=== PATIENT | male | born 1975 | race Caucasian/White ===

== ENCOUNTER 2022-06-16 19:56 | Inpatient (IN) | payer MEDICARE, OTHER ==
[~2022-06-16] VITALS: Ht 167.6 cm; Wt 66.7 kg
[2022-06-16 21:10] VITALS: BP 128/85
[2022-06-16] MEDS ORDERED: LEVO75TA7 PO (23:07)
[2022-06-16] MEDS ORDERED: OLAN5TAB3 PO (23:07)
[2022-06-16] MEDS ORDERED: QUET25TA PO (23:07)
[2022-06-16] MEDS ORDERED: CLON0.1T PO (23:07)
[2022-06-16] MEDS ORDERED: ACET325C7 PO (23:07)
[2022-06-16] MEDS ORDERED: CHLO473M3 PO (23:07)
[2022-06-16] MEDS ORDERED: AMOX-430 PO (23:07)
[2022-06-16] MEDS ORDERED: LORA-259 PO (23:07)
[2022-06-16] MEDS ORDERED: SENN-261 PO (23:07)
[2022-06-16] MEDS ORDERED: EPIN0.3A4 IM (23:07)
[2022-06-16] MEDS ORDERED: VITA200C22 PO (23:07)
[2022-06-16] MEDS ORDERED: ASCO500T10 PO (23:07)
[2022-06-16] MEDS ORDERED: DOCU100C36 PO (23:07)
[2022-06-16] MEDS ORDERED: QUET50TA PO (23:07)
[2022-06-16] MEDS ORDERED: CITA40TA22 PO (23:07)
[2022-06-16] MEDS ORDERED: GUAI-1133 PO (23:07)
[2022-06-16] MEDS ORDERED: TEMA15CA5 PO (23:07)
[2022-06-16] MEDS ORDERED: PENT400T17 PO (23:07)
[2022-06-16] MEDS ORDERED: OLAN10TA3 PO (23:07)
[2022-06-16] MEDS ORDERED: MUPI15CR TP (23:07)
[2022-06-16] MEDS ORDERED: MAG HYDROX/AL HYDROX/SIMETH 30 ML UDC PO PRN (23:30)
[2022-06-16] MEDS ORDERED: DOCUSATE SODIUM 100 MG CAPSULE PO PRN (23:30)
[2022-06-16] MEDS: ENOXAPARIN SODIUM 40 MG/0.4 ML DISP.SYRIN SQ SCH (23:30)
[2022-06-16] MEDS ORDERED: MAGNESIUM HYDROXIDE 30 ML UDC PO PRN (23:30)
[2022-06-16] MEDS ORDERED: IV NS 0.9% 1,000 ML IV PRN (23:30)
[2022-06-16] MEDS ORDERED: LORAZEPAM 1 MG TABLET PO PRN (23:30)
[2022-06-16] MEDS ORDERED: ONDANSETRON HCL/PF 4 MG/2 ML VIAL IVP PRN (23:30)
[2022-06-16] MEDS ORDERED: ACETAMINOPHEN 325 MG TABLET PO PRN (23:30)
[2022-06-16] MEDS ORDERED: ZOLPIDEM TARTRATE 5 MG TABLET PO PRN (23:30)
[2022-06-16] MEDS ORDERED: Z GUARD REMEDY 4 OZ OINT TP PRN (23:30)
[2022-06-17] VITALS: BP 158/90
--- NOTE | 2022-06-17 04:28 | NUR ---
DIRECT ADMIT NOTES Received report from Myra Gómez. Pt arrived via EMT transportation from [facility] @2109 accompanied be streets and buildings decorator and father, Luis. SALVADORx3, able to make needs known. ON NC 5LPM and tolerating well. IV access in LAC #22G and LFA #20G. IV is intact, patent, and flushing well. Safety precautions in place: bed in lowest, locked position, siderails upX2, and brakes on. Table and call light within reach. All needs met at this time.
[2022-06-17 04:57] VITALS: BP 127/82
[2022-06-17 06:18] LABS: BASOPHILS # (AUTO) 0.1 K/uL (0.0-0.2); BASOPHILS % (AUTO) 0.5 % (0.0-2.0); EOSINOPHILS % (AUTO) 0.2 % (0.0-6.0); HEMATOCRIT 35 % (39-51); HEMOGLOBIN 11.4 g/dL (13.5-17.5); LYMPHOCYTES # (AUTO) 1.5 K/uL (0.8-4.8); LYMPHOCYTES % (AUTO) 10.5 % (20.0-44.0); MEAN CORPUSCULAR HGB CONC 33 g/dl (31.0-36.0); MEAN CORPUSCULAR VOLUME 87 fL (80-96); MONOCYTES % (AUTO) 7.2 % (2.0-12.0); NEUTROPHILS # (AUTO) 11.6 K/uL (1.8-8.9); NEUTROPHILS % (AUTO) 81.6 % (43.0-81.0); PLATELET COUNT (AUTO) 215 K/uL (150-450); WHITE BLOOD COUNT (AUTO) 14.2 K/uL (4.3-11.0)
--- NOTE | 2022-06-17 07:06 | NUR ---
Rn Closing Notes Pt strolling through halls with mother. AOx3, able to make needs known. ON RA and tolerating well. IV access in LAC #22G and LFA #20G. IV is intact, patent, and flushing well. All orders carried out. All needs met. Pt kept clean and dry. Safety precautions in place: bed in lowest, locked position, siderails upX2, and brakes on. Table and call light within reach. Will endorse to oncoming shift for CHASTITY.
[2022-06-17 07:12] LABS: CALCIUM, SERUM 9.1 mg/dL (8.5-10.1); CREATININE 0.6 mg/dL (0.6-1.3); MAGNESIUM 2.1 mg/dL (1.8-2.4); PHOSPHORUS 2.2 mg/dL (2.5-4.9); POTASSIUM 3.6 mmol/L (3.5-5.1)
--- NOTE | 2022-06-17 07:30 | NUR ---
ms rn received on bed, awake,oriented x3, not in any form of distress, respirations even and unlabored,no sob noted ,on room air, saturating 98%,denies pain at this time, noted to have chin wound w/ dressing dry and intact, will monitor patient.
[2022-06-17 08:00] LABS: T4 (THYROXINE) 7.6 ug/dL (4.7-13.3); THYROID STIMULATING HORMONE 5.657 uIU/mL (0.358-3.74)
[2022-06-17 08:11] VITALS: BP 99/65
[2022-06-17] MEDS: IPRATROPIUM NEB FS 0.5 MG/2.5 ML AMPUL.NEB NEB SCH ×4 (08:45→20:23)
[2022-06-17] MEDS: ALBUTEROL FS 2.5 MG/3 ML VIAL.NEB NEB SCH ×4 (08:45→20:23)
[2022-06-17] MEDS: CHLORHEXIDINE GLUCONATE 15 ML UDC MM SCH ×2 (08:45→21:33)
[2022-06-17] MEDS: QUETIAPINE FUMARATE 25 MG TABLET PO SCH ×3 (08:46→21:21)
[2022-06-17] MEDS: ASCORBIC ACID 500 MG TABLET PO SCH ×2 (08:46→17:08)
[2022-06-17] MEDS: OLANZAPINE 5 MG TABLET PO SCH (08:46)
[2022-06-17] MEDS: CITALOPRAM HYDROBROMIDE 20 MG TABLET PO SCH (08:46)
[2022-06-17] MEDS: CEFEPIME 2 GM in IV D5W 100 ML IV SCH ×3 (08:49→21:20)
[2022-06-17] MEDS: PENTOXIFYLLINE 400 MG TABLET.SA PO SCH ×3 (08:50→17:10)
[2022-06-17] MEDS: LEVOTHYROXINE SODIUM 75 MCG TABLET PO SCH (08:50)
[2022-06-17] MEDS: ENOXAPARIN SODIUM 40 MG/0.4 ML DISP.SYRIN SQ SCH (08:54)
--- NOTE | 2022-06-17 08:54 | NUR ---
WOUND CARE CONSULT: PT PRESENTS WITH JAW WOUNDS WITH EXPOSED BONE, PRESENT ON ADMISSION. PT'S MOTHER DOING WOUND CARE. DISCUSSED SKIN PROTECTION AND WOUND CARE WITH NURSING STAFF AND MOTHER AT BEDSIDE. DR FALK CALLED FOR SURGICAL CONSULT. IN AGREEMENT WITH PLAN OF CARE. PT IS AMBULATORY.
[2022-06-17] MEDS: MUPIROCIN 2% CREAM 15 GM TUBE TP SCH ×2 (08:55→17:08)
[2022-06-17] MEDS: MUPIROCIN OINT 2% 22 GM TUBE TP SCH ×2 (09:00→21:34)
[2022-06-17] MEDS ORDERED: VANCOMYCIN 1.5 GM in IV D5W 500ml IV ONE (09:00)
[2022-06-17] MEDS ORDERED: PANTOPRAZOLE 40 MG VIAL IV SCH (09:00)
[2022-06-17 09:26] LABS: BILIRUBIN,URINE NEGATIVE (NEGATIVE); COLOR,URINE YELLOW (YELLOW); LEUKOCYTE ESTERASE ,URINE NEGATIVE (NEGATIVE); NITRITE, URINE NEGATIVE (NEGATIVE); PROTEIN,URINE 1+ mg/dl (NEGATIVE); UGLUCOSE NEGATIVE (NEGATIVE); UROBILINOGEN,URINE 0.2 EU/dL (0.2)
--- NOTE | 2022-06-17 10:00 | NUR ---
ms rn breakfast served, due meds given,tolerated well. was seen by speech therapist w/ pureed food recommendation.
[2022-06-17 10:15] LABS: BACTERIA,URINE None seen /HPF (None Seen); SQUAMOUS EPITHELIAL CELL,UR Rare /HPF (None Seen); WBC,URINE NONE SEEN /HPF (0-3)
[2022-06-17 10:16] LABS: MUCUS,URINE Few /LPF (None Seen)
--- NOTE | 2022-06-17 11:00 | NUR ---
ms rn started on iv vanco, no reaction noted.
--- NOTE | 2022-06-17 15:18 | NUR ---
PATIENT FOUND W/O 02 ON. PATIENT IS STABLE, AWAKE, AND NO SOB NOTED. Addendum: 06/17/22 at 1519 by NATASHA CROOKS RT Amended: Links added.
[2022-06-17] MEDS ORDERED: NEUTRA PHOS 1 POWD.PACKET PO ONE (16:00)
[2022-06-17 16:41] VITALS: BP 119/78
[2022-06-17] MEDS: OLANZAPINE 10 MG TABLET PO SCH (17:08)
[2022-06-17] MEDS: VANCOMYCIN 1.25 GM in IV D5W 250 ML IV SCH (17:11)
--- NOTE | 2022-06-17 17:52 | NUR ---
ms rn still finishing antibiotics, cannot finish,patient is repeatedly going to the bathroom, no distress noted, meds given all needs attended.
--- NOTE | 2022-06-17 19:40 | NUR ---
DIESEL TRUCK DRIVER OPENING NOTES RECEIVED PT IN BED AWAKE AND ALERT FOR CONTINUITY OF CARE. A/O X 3, DELAYED. PT IS ABLE TO MAKE NEEDS KNOWN. NO S/S OF PAIN AT THIS TIME. ON ROOM AIR, BREATHING EVEN AND UNLABORED, NO DISTRESS OR SOB NOTED. IV ACCESS ON RAC #22G, CURRENTLY ON VANCO WITH NS @ 75ML/HR. PATIENT WITH EXTERNAL GRINDER SETUP OPERATOR WITH CURRENT READING OF ST 106, NO CARDIAC DISTRESS NOTED. SAFETY PRECAUTIONS IN PLACE WITH BED IN LOWEST LOCKED POSITION. BED ALARM ON. SIDE RIALS UP X 2. CALL LIGHT WITHIN EASY REACH. WILL CONTINUE THE PLAN OF CARE AND CARRY OUT ACTIVE MD ORDERS.
[2022-06-17 20:00] VITALS: BP 131/80
[2022-06-17] MEDS: TEMAZEPAM 15 MG CAPSULE PO SCH (21:20)
[2022-06-18] VITALS: BP 129/76
[2022-06-18] MEDS: VANCOMYCIN 1.25 GM in IV D5W 250 ML IV SCH ×3 (00:08→16:50)
[2022-06-18] MEDS: CEFEPIME 2 GM in IV D5W 100 ML IV SCH ×3 (04:04→21:24)
--- NOTE | 2022-06-18 07:40 | NUR ---
RASCHEL KNITTING MACHINE OPERATOR OPENING NOTES RECEIVED PT IN BED AWAKE AND ALERT. A/O X 3, DELAYED. PT IS ABLE TO MAKE NEEDS KNOWN. NO S/S OF PAIN AT THIS TIME. ON ROOM AIR, BREATHING EVEN AND UNLABORED, NO DISTRESS OR SOB NOTED. IV ACCESS ON RAC #22G, CURRENTLY ON VANCO WITH NS @ 75ML/HR. PATIENT WITH EXTERNAL COLLECTIONS AND ARCHIVES DIRECTOR , NO CARDIAC DISTRESS NOTED. SAFETY PRECAUTIONS IN PLACE WITH BED IN LOWEST LOCKED POSITION. BED ALARM ON. SIDE RIALS UP X 2. CALL LIGHT WITHIN EASY REACH. FATHER AT BEDSIDE. WILL CONTINUE TO MONITOR.
[2022-06-18] MEDS: IPRATROPIUM NEB FS 0.5 MG/2.5 ML AMPUL.NEB NEB SCH ×4 (07:42→20:03)
[2022-06-18] MEDS: ALBUTEROL FS 2.5 MG/3 ML VIAL.NEB NEB SCH ×4 (07:42→20:03)
--- NOTE | 2022-06-18 07:47 | NUR ---
COUTIERIER CLOSING NOTES PT IN BED AWAKE AND ALERT FOR CONTINUITY OF CARE. A/O X 3, DELAYED. PT IS ABLE TO MAKE NEEDS KNOWN. NO S/S OF PAIN AT THIS TIME. ON ROOM AIR, BREATHING EVEN AND UNLABORED, NO DISTRESS OR SOB NOTED. IV ACCESS ON RAC #22G, SL. PATIENT WITH EXTERNAL GEOPHYSICAL LABORATORY SUPERVISOR WITH CURRENT READING OF SR 80, NO CARDIAC DISTRESS NOTED. WOUND CARE DONE. ALL NEEDS ATTENDED. SAFETY PRECAUTIONS MAINTAINED WITH BED IN LOWEST LOCKED POSITION. BED ALARM ON. SIDE RIALS UP X 2. CALL LIGHT WITHIN EASY REACH. WILL ENDORSE TO THE NEXT SHIFT.
[2022-06-18 08:06] LABS: BASOPHILS # (AUTO) 0.1 K/uL (0.0-0.2); BASOPHILS % (AUTO) 0.6 % (0.0-2.0); EOSINOPHILS % (AUTO) 2.7 % (0.0-6.0); HEMATOCRIT 36 % (39-51); HEMOGLOBIN 11.8 g/dL (13.5-17.5); LYMPHOCYTES # (AUTO) 1.1 K/uL (0.8-4.8); LYMPHOCYTES % (AUTO) 13.3 % (20.0-44.0); MEAN CORPUSCULAR HGB CONC 33 g/dl (31.0-36.0); MEAN CORPUSCULAR VOLUME 87 fL (80-96); MONOCYTES # (AUTO) 0.7 K/uL (0.1-1.30); MONOCYTES % (AUTO) 8.3 % (2.0-12.0); NEUTROPHILS # (AUTO) 6.4 K/uL (1.8-8.9); NEUTROPHILS % (AUTO) 75.1 % (43.0-81.0); PLATELET COUNT (AUTO) 240 K/uL (150-450); RED BLOOD CELL COUNT(AUTO) 4.13 MIL/uL (4.5-6.0); WHITE BLOOD COUNT (AUTO) 8.5 K/uL (4.3-11.0)
[2022-06-18 08:15] VITALS: BP 112/60
[2022-06-18] MEDS: ASCORBIC ACID 500 MG TABLET PO SCH ×2 (08:22→16:52)
[2022-06-18] MEDS: CHLORHEXIDINE GLUCONATE 15 ML UDC MM SCH ×2 (08:22→21:24)
[2022-06-18] MEDS: LEVOTHYROXINE SODIUM 75 MCG TABLET PO SCH (08:22)
[2022-06-18] MEDS: QUETIAPINE FUMARATE 25 MG TABLET PO SCH ×3 (08:23→21:24)
[2022-06-18] MEDS: OLANZAPINE 5 MG TABLET PO SCH (08:23)
[2022-06-18] MEDS: CITALOPRAM HYDROBROMIDE 20 MG TABLET PO SCH (08:23)
[2022-06-18 08:25] LABS: CALCIUM, SERUM 9.1 mg/dL (8.5-10.1); CREATININE 0.7 mg/dL (0.6-1.3); MAGNESIUM 2.4 mg/dL (1.8-2.4); POTASSIUM 3.5 mmol/L (3.5-5.1)
[2022-06-18] MEDS: MUPIROCIN 2% CREAM 15 GM TUBE TP SCH ×2 (08:29→16:50)
[2022-06-18] MEDS: PENTOXIFYLLINE 400 MG TABLET.SA PO SCH ×3 (08:29→17:02)
[2022-06-18] MEDS: PANTOPRAZOLE 40 MG TABLET.DR PO SCH (08:30)
[2022-06-18] MEDS: MUPIROCIN OINT 2% 22 GM TUBE TP SCH ×2 (08:43→21:51)
[2022-06-18] MEDS: ENOXAPARIN SODIUM 40 MG/0.4 ML DISP.SYRIN SQ SCH (08:44)
--- NOTE | 2022-06-18 10:00 | NUR ---
ms perez faxed request of blood culture result to [facility], emailed to their records department ,per their protocol.
--- NOTE | 2022-06-18 14:00 | NUR ---
ms rn records received but no blood culture result,dr. graff made aware, perhaps result not yet available per md.
[2022-06-18 16:00] VITALS: BP 103/70
[2022-06-18] MEDS: OLANZAPINE 10 MG TABLET PO SCH (17:01)
--- NOTE | 2022-06-18 17:51 | NUR ---
ms rn pharmacy called, blas level - 29- blas stopped, only half of 250 cc give, all needs attended.
--- NOTE | 2022-06-18 18:30 | NUR ---
ms rn on bed, mom at bedside,all needs attended, no distress noted.
--- NOTE | 2022-06-18 18:38 | NUR ---
FRAME FIXER CLOSING NOTES PT IN BED AWAKE AND ALERT FOR CONTINUITY OF CARE. A/O X 3, DELAYED. PT IS ABLE TO MAKE NEEDS KNOWN. NO S/S OF PAIN AT THIS TIME. ON ROOM AIR, BREATHING EVEN AND UNLABORED, NO DISTRESS OR SOB NOTED. IV ACCESS ON RAC #22G, SL. PATIENT WITH EXTERNAL CODING VALIDATOR WITH CURRENT READING OF SR 80, NO CARDIAC DISTRESS NOTED. WOUND CARE DONE. ALL NEEDS ATTENDED. SAFETY PRECAUTIONS MAINTAINED WITH BED IN LOWEST LOCKED POSITION. BED ALARM ON. SIDE RIALS UP X 2. CALL LIGHT WITHIN EASY REACH. WILL ENDORSE TO THE NEXT SHIFT.
--- NOTE | 2022-06-18 19:30 | NUR ---
TELERN FULLY AWAKE MOTHER OF PATIENT AT BEDSIDE. WILL STAY OVERNIGHT. PATIENT ON RA SATURATING 98%. MOTHER ASSISTING PATIENT NEEDS PLAN OF CARE AND MEDICATION REGIMEN DISCUSSED WITH MOTHER WELL UNDERSTOOD. NO NEEDS FOR NOW. SR ON THE MONITOR.
[2022-06-18 20:00] VITALS: BP 101/57
--- NOTE | 2022-06-18 20:00 | NUR ---
TELERN RT AT BEDSIDE. HHN TREATMENT ON PROGRESS.
[2022-06-18] MEDS: TEMAZEPAM 15 MG CAPSULE PO SCH (21:25)
--- NOTE | 2022-06-18 22:00 | NUR ---
TELERN DUE MEDS ADMINISTERED. ABLE TO SWALLOW MEDS, ABLE TO FOLLOW INSTRUCTIONS, MOTHER ASSISTING. BRP VOIDED FREELY. PAINFREE. REMAINS SR ON THE MONITOR . CHIN WOUND DRESSING CHANGED BY MOTHER.
[2022-06-19] VITALS: BP 100/69
--- NOTE | 2022-06-19 01:06 | NUR ---
TELERN REPORT GIVEN TO RN FOR CONTINUITY OF CARE. REMAINS SR ON THE MONITOR,
[2022-06-19] MEDS: VANCOMYCIN HCL 0.75 GM in IV D5W 250 ML IV SCH ×3 (01:07→18:09)
--- NOTE | 2022-06-19 01:10 | NUR ---
RN NOTE TRANSFER OF CARE FROM [address]. PATIENT IN BED; ASLEEP. EASILY AROUSABLE BY TOUCH. ON ROOM AIR; TOLERATING WELL. IN NO ACUTE DISTRESS. SAFETY MEASURES IMPLEMENTED: CALL LIGHT AND TABLE WITHIN REACH, SIDE RAILS UP X 2, BED IN LOWEST LOCKED POSITION. WILL CONTINUE TO MONITOR THROUGHOUT SHIFT.
[2022-06-19] MEDS: CEFEPIME 2 GM in IV D5W 100 ML IV SCH ×3 (04:32→21:11)
[2022-06-19 04:41] VITALS: BP 102/71
[2022-06-19 06:41] LABS: BASOPHILS # (AUTO) 0.1 K/uL (0.0-0.2); BASOPHILS % (AUTO) 0.9 % (0.0-2.0); HEMATOCRIT 35 % (39-51); HEMOGLOBIN 11.7 g/dL (13.5-17.5); LYMPHOCYTES % (AUTO) 11.9 % (20.0-44.0); MEAN CORPUSCULAR HGB CONC 34 g/dl (31.0-36.0); MEAN CORPUSCULAR VOLUME 86 fL (80-96); MONOCYTES # (AUTO) 0.6 K/uL (0.1-1.30); MONOCYTES % (AUTO) 7.4 % (2.0-12.0); NEUTROPHILS # (AUTO) 6.2 K/uL (1.8-8.9); NEUTROPHILS % (AUTO) 75.8 % (43.0-81.0); PLATELET COUNT (AUTO) 270 K/uL (150-450); RED BLOOD CELL COUNT(AUTO) 4.04 MIL/uL (4.5-6.0); WHITE BLOOD COUNT (AUTO) 8.2 K/uL (4.3-11.0)
--- NOTE | 2022-06-19 06:58 | NUR ---
RN CLOSING NOTE PT IN BED; AWAKE, A/O X 3, DEVELOPMENTALLY DELAYED. STABLE ON ROOM AIR. IN NO ACUTE DISTRESS. ABLE TO MAKE NEEDS KNOWN. NO S/S OF PAIN AT THIS TIME. WITH IV ACCESS ON GARRET 22g; PATENT, INTACT AND SL. WITH EXTERNAL BRIDGE WELDER WITH CURRENT READING OF SR 80. ALL NEEDS ATTENDED. SAFETY PRECAUTIONS MAINTAINED WITH BED IN LOWEST LOCKED POSITION. BED ALARM ON. SIDE RIALS UP X 2. CALL LIGHT WITHIN EASY REACH. ENDORSED TO NEXT SHIFT FOR CHASTITY.
--- NOTE | 2022-06-19 07:10 | NUR ---
ms rn received on bed, awake,mom at bedside, not in any form of distress, patient is mentally delayed, came in w/ sepsis,denies pain at this time, safety precaution maintained,will monitor patient.
[2022-06-19] MEDS: ALBUTEROL FS 2.5 MG/3 ML VIAL.NEB NEB SCH ×4 (07:40→19:40)
[2022-06-19] MEDS: IPRATROPIUM NEB FS 0.5 MG/2.5 ML AMPUL.NEB NEB SCH ×4 (07:40→19:40)
[2022-06-19] MEDS: LEVOTHYROXINE SODIUM 75 MCG TABLET PO SCH (07:41)
[2022-06-19 08:00] VITALS: BP 131/87
[2022-06-19 08:31] LABS: CALCIUM, SERUM 9.2 mg/dL (8.5-10.1); CREATININE 0.9 mg/dL (0.6-1.3); MAGNESIUM 2.4 mg/dL (1.8-2.4); POTASSIUM 3.4 mmol/L (3.5-5.1)
[2022-06-19] MEDS: MUPIROCIN 2% CREAM 15 GM TUBE TP SCH ×2 (09:00→17:42)
[2022-06-19] MEDS: OLANZAPINE 5 MG TABLET PO SCH (09:42)
[2022-06-19] MEDS: QUETIAPINE FUMARATE 25 MG TABLET PO SCH ×3 (09:42→21:46)
[2022-06-19] MEDS: ASCORBIC ACID 500 MG TABLET PO SCH ×2 (09:42→17:42)
[2022-06-19] MEDS: CITALOPRAM HYDROBROMIDE 20 MG TABLET PO SCH (09:42)
[2022-06-19] MEDS: ENOXAPARIN SODIUM 40 MG/0.4 ML DISP.SYRIN SQ SCH (09:43)
[2022-06-19] MEDS: CHLORHEXIDINE GLUCONATE 15 ML UDC MM SCH ×2 (09:43→21:11)
[2022-06-19] MEDS: MUPIROCIN OINT 2% 22 GM TUBE TP SCH ×2 (09:47→21:12)
[2022-06-19] MEDS: PENTOXIFYLLINE 400 MG TABLET.SA PO SCH ×3 (09:47→18:10)
[2022-06-19] MEDS: PANTOPRAZOLE 40 MG TABLET.DR PO SCH (09:50)
--- NOTE | 2022-06-19 09:50 | NUR ---
ms rn breakfast served,due meds given,tolerated well. all needs attended.
[2022-06-19] MEDS ORDERED: POTASSIUM CHLORIDE 20 MEQ POWDER PACKET PO ONE (11:30)
--- NOTE | 2022-06-19 12:00 | NUR ---
ms rn was seen by dr. martini, still waiting for blood culture, result,all needs attended.
[2022-06-19 12:09] VITALS: BP 150/94
[2022-06-19 16:01] VITALS: BP 139/98
[2022-06-19] MEDS ORDERED: POTASSIUM CHLORIDE 20 MEQ POWDER PACKET GT ONE (17:00)
[2022-06-19] MEDS: OLANZAPINE 10 MG TABLET PO SCH (17:41)
--- NOTE | 2022-06-19 17:51 | NUR ---
ms rn on bed,no distress noted,all needs attended, sister at bedside.
--- NOTE | 2022-06-19 17:54 | NUR ---
ms rn cannot finish iv atb, patient repeatedly goes to the bathroom,all needs attended.
[2022-06-19] MEDS ORDERED: DORZ10DR EACHEYE (19:04)
[2022-06-19] MEDS ORDERED: CETI-90 PO ×2 (19:04)
[2022-06-19] MEDS ORDERED: ASCO500T21 PO (19:04)
[2022-06-19] MEDS ORDERED: ROSU5TAB PO ×2 (19:04)
[2022-06-19] MEDS ORDERED: ASCO500T10 PO (19:04)
[2022-06-19] MEDS ORDERED: PREG200C PO (19:04)
[2022-06-19] MEDS ORDERED: LINA72CA PO (19:05)
--- NOTE | 2022-06-19 19:42 | NUR ---
RT Pt recvd awake on room air with family memeber at bedside. No SOB or respiratory distress noted at this time. neb tx given and july well with no adverse reaction noted. Diminished BS. Spo2 >92%
[2022-06-19 20:00] VITALS: BP 118/84
--- NOTE | 2022-06-19 20:06 | NUR ---
LAB SUPPORT TECH NOTES RECEIVED SITTING ON EDGE OF BED,A/O X3,DEVELOPMENT DELAYED,ABLE TO ANSWER SIMPLE QUESTION.FAMILY MEMBER AT BEDSIDE.SALINE LOCK LEFT UPPER ARM INTACT AND PATENT.AMBULATE WITH STEADY GAIT,S/P RESECTION OF CHIN,DRESSING INTACT AND DRY,WILL CONTINUE TO MONITOR STATUS.CALL LIGHT IN REACH,NEEDS ANTICIPATED.
[2022-06-19] MEDS: TEMAZEPAM 15 MG CAPSULE PO SCH (21:45)
[2022-06-20] VITALS: BP 122/85
[2022-06-20] MEDS: VANCOMYCIN HCL 0.75 GM in IV D5W 250 ML IV SCH ×3 (01:32→16:28)
--- NOTE | 2022-06-20 01:42 | NUR ---
MASTER CONTROL TECHNICIAN NOTES VANCO TROUGH 19,DOSE HUNG THIS TIME.
[2022-06-20] MEDS: CEFEPIME 2 GM in IV D5W 100 ML IV SCH ×3 (05:15→20:21)
--- NOTE | 2022-06-20 06:10 | NUR ---
CAN BANDER OPERATOR NOTES AWAKE,A/O X3,VERBALIZED NEEDS,VERY THANKFUL OF THE SERVICE AND CARE,HE LIKES THE HOSPITAL.MED COMPLIANT.AMBULATE WITH STEADY GAIT,SISTER AT BEDSIDE.FOR DISCHARGE PLANNING AWAITING BLOOD CULTURES RESULT FOR JONES.
[2022-06-20 06:20] LABS: BASOPHILS # (AUTO) 0.1 K/uL (0.0-0.2); BASOPHILS % (AUTO) 1.2 % (0.0-2.0); EOSINOPHILS % (AUTO) 4.6 % (0.0-6.0); HEMATOCRIT 36 % (39-51); HEMOGLOBIN 11.8 g/dL (13.5-17.5); LYMPHOCYTES # (AUTO) 1.1 K/uL (0.8-4.8); LYMPHOCYTES % (AUTO) 15.9 % (20.0-44.0); MEAN CORPUSCULAR HGB CONC 33 g/dl (31.0-36.0); MEAN CORPUSCULAR VOLUME 87 fL (80-96); MONOCYTES # (AUTO) 0.7 K/uL (0.1-1.30); MONOCYTES % (AUTO) 10.2 % (2.0-12.0); NEUTROPHILS # (AUTO) 4.9 K/uL (1.8-8.9); NEUTROPHILS % (AUTO) 68.1 % (43.0-81.0); PLATELET COUNT (AUTO) 278 K/uL (150-450); RED BLOOD CELL COUNT(AUTO) 4.14 MIL/uL (4.5-6.0); WHITE BLOOD COUNT (AUTO) 7.2 K/uL (4.3-11.0)
[2022-06-20 06:41] LABS: CALCIUM, SERUM 9.1 mg/dL (8.5-10.1); CREATININE 0.7 mg/dL (0.6-1.3); MAGNESIUM 2.5 mg/dL (1.8-2.4); PHOSPHORUS 4.2 mg/dL (2.5-4.9); POTASSIUM 3.5 mmol/L (3.5-5.1)
[2022-06-20 07:00] VITALS: BP 127/75
--- NOTE | 2022-06-20 07:30 | NUR ---
PT RECEIVED RESTING COMFORTABLY IN BED. NO S/S OR C/O PAIN OR DISTRESS NOTED. SIDE RAILS UP X2, CALL LIGHT LEFT WITHIN REACH. WILL CONTINUE PLAN OF CARE.
[2022-06-20] MEDS: ALBUTEROL FS 2.5 MG/3 ML VIAL.NEB NEB SCH ×4 (07:50→19:50)
[2022-06-20] MEDS: IPRATROPIUM NEB FS 0.5 MG/2.5 ML AMPUL.NEB NEB SCH ×4 (07:50→19:50)
[2022-06-20] MEDS: PENTOXIFYLLINE 400 MG TABLET.SA PO SCH ×3 (08:14→16:28)
[2022-06-20] MEDS: LEVOTHYROXINE SODIUM 75 MCG TABLET PO SCH (08:14)
[2022-06-20] MEDS: CITALOPRAM HYDROBROMIDE 20 MG TABLET PO SCH (08:14)
[2022-06-20] MEDS: PANTOPRAZOLE 40 MG TABLET.DR PO SCH (08:14)
[2022-06-20] MEDS: CHLORHEXIDINE GLUCONATE 15 ML UDC MM SCH ×2 (08:14→20:21)
[2022-06-20] MEDS: ASCORBIC ACID 500 MG TABLET PO SCH ×2 (08:14→16:28)
[2022-06-20] MEDS: QUETIAPINE FUMARATE 25 MG TABLET PO SCH ×3 (08:14→21:06)
[2022-06-20] MEDS: OLANZAPINE 5 MG TABLET PO SCH (08:16)
[2022-06-20] MEDS: ENOXAPARIN SODIUM 40 MG/0.4 ML DISP.SYRIN SQ SCH (08:26)
[2022-06-20] MEDS: MUPIROCIN 2% CREAM 15 GM TUBE TP SCH ×2 (08:31→16:29)
[2022-06-20] MEDS: MUPIROCIN OINT 2% 22 GM TUBE TP SCH ×2 (08:32→20:22)
[2022-06-20 12:00] VITALS: BP 126/90
[2022-06-20 16:00] VITALS: BP 136/91
[2022-06-20] MEDS: OLANZAPINE 10 MG TABLET PO SCH (17:34)
--- NOTE | 2022-06-20 18:23 | NUR ---
CHANGE OF SHIFT REPORT PT RESTING COMFORTABLY IN BED. NO S/S OR C/O PAIN OR DISTRESS NOTED. SIDE RAILS UP X2, CALL LIGHT LEFT WITHIN REACH. PT KEPT CLEAN, DRY, AND COMFORTABLE. WILL GIVE REPORT TO SNEHAL ALDRICH.
--- NOTE | 2022-06-20 19:30 | NUR ---
MS RN OPENING NOTE RECEIVED PATIENT IN BED, AWAKE, ALERT AND ORIENTED X 3, WITH FATHER AT BEDSIDE. ABLE TO MAKE NEEDS KNOWN. AFEBRILE AND NOT IN ANY FORM OF ACUTE DISTRESS. BREATHING EVEN AND NON LABORED. WITH IV ACCESS ON L AC 22G-SL. SAFETY MEASURES IN PLACE. KEPT BED IN LOCKED AND IN LOW POSITION. SIDE RAILS UP X2. ADVISED TO USE THE CALL LIGHT WHEN IN NEED OF ASSISTANCE.
[2022-06-20] MEDS ORDERED: IV D5/0.45 NACL 1,000 ML IV ONE (20:00)
[2022-06-20] MEDS: IV NS 0.9% 1,000 ML IV SCH (20:06)
[2022-06-20 20:48] VITALS: BP 136/89
[2022-06-20] MEDS: TEMAZEPAM 15 MG CAPSULE PO SCH (21:07)
[2022-06-21] MEDS: VANCOMYCIN HCL 0.75 GM in IV D5W 250 ML IV SCH ×2 (00:17→09:09)
[2022-06-21] MEDS: CEFEPIME 2 GM in IV D5W 100 ML IV SCH ×2 (04:20→13:01)
--- NOTE | 2022-06-21 06:24 | NUR ---
MS RN CLOSING NOTE PATIENT IN BED, ASLEEP BUT EASY TO AROUSE AND RESPONSIVE, WITH FATHER AT BEDSIDE. ABLE TO MAKE NEEDS KNOWN. AFEBRILE AND NOT IN ANY FORM OF ACUTE DISTRESS. BREATHING EVEN AND NON LABORED. WITH IV ACCESS ON L AC 22G RUNNING WITH NS AT 75ML/HR. MEDICATED ORDERED. CONTINUOUS ON IV ATB, MONITORED FOR ANY ADVERSE REACTION. WOUND CARE DONE DURING THE SHIFT. SAFETY MEASURES IN PLACE. KEPT BED IN LOCKED AND IN LOW POSITION. SIDE RAILS UP X2. ADVISED TO USE THE CALL LIGHT WHEN IN NEED OF ASSISTANCE. ALL NURSING NEEDS ATTENDED. ENDORSED TO INCOMING SHIFT FOR CONTINUITY OF CARE.
[2022-06-21 07:02] LABS: CALCIUM, SERUM 8.9 mg/dL (8.5-10.1); CREATININE 0.7 mg/dL (0.6-1.3); POTASSIUM 3.4 mmol/L (3.5-5.1)
--- NOTE | 2022-06-21 07:25 | NUR ---
MS RN OPENING NOTES: RECEIVED PATIENT SITTING IN BED, WITH FATHER AT BEDSIDE. NO SIGNS OF DISTRESS, NO COMPLAIN OF PAIN AND DISCOMFORT AT THIS TIME. PATIENT IS A/O X3. ON ROOM AIR SATURATING WELL; NO SOB NOTED, BREATHING EVEN AND UNLABORED. WITH IV ACCESS ON LEFT AC 22G RUNNING WITH NS @ 75ML/HR, INFUSING WELL. SAFETY MEASURE IN PLACE. BED IN LOW AND LOCKED POSITION, SIDE RAILS UP X2; CALL LIGHT WITHIN EASY REACH. WILL CONTINUE TO MONITOR PATIENT.
[2022-06-21] MEDS: IPRATROPIUM NEB FS 0.5 MG/2.5 ML AMPUL.NEB NEB SCH ×2 (07:41→12:00)
[2022-06-21] MEDS: ALBUTEROL FS 2.5 MG/3 ML VIAL.NEB NEB SCH ×2 (07:41→12:00)
[2022-06-21 08:18] VITALS: BP 149/94
[2022-06-21] MEDS: MUPIROCIN 2% CREAM 15 GM TUBE TP SCH (09:00)
[2022-06-21] MEDS: PENTOXIFYLLINE 400 MG TABLET.SA PO SCH ×3 (09:00→16:27)
[2022-06-21] MEDS: OLANZAPINE 5 MG TABLET PO SCH (09:04)
[2022-06-21] MEDS: CHLORHEXIDINE GLUCONATE 15 ML UDC MM SCH (09:04)
[2022-06-21] MEDS: LEVOTHYROXINE SODIUM 75 MCG TABLET PO SCH (09:04)
[2022-06-21] MEDS: ASCORBIC ACID 500 MG TABLET PO SCH ×2 (09:05→16:27)
[2022-06-21] MEDS: QUETIAPINE FUMARATE 25 MG TABLET PO SCH ×2 (09:05→16:26)
[2022-06-21] MEDS: PANTOPRAZOLE 40 MG TABLET.DR PO SCH (09:05)
[2022-06-21] MEDS: CITALOPRAM HYDROBROMIDE 20 MG TABLET PO SCH (09:13)
--- NOTE | 2022-06-21 09:15 | NUR ---
MS RN MS RN MISTAKENLY PULLED OUT 1 TABLET INSTEAD OF 2 OF CITALOPRAM TAB. WENT TO [facility] GET ANOTHER 1 TO COMPLETE THE DOSE.
[2022-06-21] MEDS: IV NS 0.9% 1,000 ML IV SCH (09:20)
--- NOTE | 2022-06-21 09:20 | NUR ---
MS RN PATIENT STILL HAS RUNNING IV FLUID AT 700ML.
[2022-06-21] MEDS: MUPIROCIN OINT 2% 22 GM TUBE TP SCH (09:43)
[2022-06-21] MEDS: ENOXAPARIN SODIUM 40 MG/0.4 ML DISP.SYRIN SQ SCH (09:44)
[2022-06-21] MEDS ORDERED: POTASSIUM CHLORIDE 20 MEQ TAB.PRT.SR PO ONE (10:00)
[2022-06-21] MEDS ORDERED: ALBU8.5H8 INH (14:16)
[2022-06-21] MEDS ORDERED: AMOX-430 PO (14:16)
--- NOTE | 2022-06-21 16:35 | NUR ---
MS DISCHARGE NOTES: DISCHARGED PATIENT TO [facility] IN STABLE CONDITION. A/O X3. ON ROOM AIR, TOLERATING WELL. NO S/SX OF DISTRESS, BREATHING WITHOUT DIFFICULTY. DENIES PAIN AND DISCOMFORT AT THIS TIME. ALL BELONGINGS ACCOUNTED TO PATIENT. CARE INSTRUCTION RENDERED TO PATIENTS CAREGIVER/MOTHER (CONSERVATOR). DUE MEDS GIVEN. IV ACCESS REMOVED, NO REDNESS OR BLEEDING NOTED. WOUND DRESSING CHANGED PRIOR TO DISCHARGE. DISCHARGED INSTRUCTION RELAYED TO PATIENTS CAREGIVER/MOTHER (CONSERVATOR) WELL TO [facility]AC[facility] NURSE. PATIENT LEFT THE UNIT VIA WHEELCHAIR. ENDORSED TO [facility] COORDINATOR/NURSE AVINA. ENDORSED ACCORDINGLY.
== END 2022-06-21 16:39 | DRG 871 ==
LOC: TELE 21:03 → MED 06-20 15:31
PROVIDERS: ADMIT Nurse Practitioner Acute Care; ATTEND Student in an Organized Health Care Education/Training Program
DX: A41.9 Sepsis, unspecified organism (principal); G92.8 Other toxic encephalopathy; J69.0 Pneumonitis due to inhalation of food and vomit; J96.01 Acute respiratory failure with hypoxia; R65.20 Severe sepsis without septic shock; E03.9 Hypothyroidism, unspecified; R62.50 Unspecified lack of expected normal physiological development in childhood; R13.10 Dysphagia, unspecified; Z87.39 Personal history of other diseases of the musculoskeletal system and connective tissue; Z85.819 Personal history of malignant neoplasm of unspecified site of lip, oral cavity, and pharynx; Z92.3 Personal history of irradiation; Z98.890 Other specified postprocedural states; D64.9 Anemia, unspecified; Z79.51 Long term (current) use of inhaled steroids; Z79.899 Other long term (current) drug therapy
CPT/HCPCS: 36415; 71045-TC; 80048-TC; 80061-TC; 80202-TC; 81001; 83540-TC; 83605-TC; 83735-TC; 84100-TC; 84436-TC; 84443-TC; 84480; 85025-TC; 87040-TC; 87081-TC; 92526; 92611-TC; 94799-TC; 97116-TC; 97530-TC; A4223; A6253; C9113; G0378; J0692; J1650; J3370; J7030; J7050; J7060